=== PATIENT | female | born 1945 | race Two or more races ===

== ENCOUNTER 2020-12-16 06:00 | Day surgery (SDC) | payer OTHER ==
[~2020-12-16 06:00] MED LIST: ALTACE10 MG PO; D3 + K2 DOTS 11 EACH PO; GABAPENTIN800 M1 PO; HYZAAR 50-12.51 EACH PO; NOVOLOG MI100 UNIT/1; PHAZYME180 MG PO; PREVACID15 MG PO; VITAMIN K100 MCG PO
== END 2020-12-16 10:40 | disposition home or self-care (01) ==
LOC: CIR.AMB 06:00
PROVIDERS: ATTEND Orthopaedic Surgery Hand Surgery
DX: G56.01 Carpal tunnel syndrome, right upper limb (principal); Z20.822 Contact with and (suspected) exposure to COVID-19